=== PATIENT | female | born 1985 | race Caucasian/White ===

== ENCOUNTER 2017-01-13 18:53 | Emergency (ER) | payer MEDICAID ==
[~2017-01-13] VITALS: Ht 167.6 cm; Wt 71.6 kg
[~2017-01-13 18:53] MED LIST: AMOXICILLIN/CL875 MG PO; LORTAB 7.5-3251 TAB PO; MOTRIN800 MG PO; PENICILLIN V P500 MG PO; PHENERGAN12.5 MG/TA PO; ULTRAM50 M1 PO
[2017-01-13 19:27] VITALS: BP 106/68
== END 2017-01-13 19:30 | disposition home or self-care (01) | DRG 395 ==
LOC: ED 18:53
DX: T18.9XXA Foreign body of alimentary tract, part unspecified, initial encounter (principal); X58.XXXA Exposure to other specified factors, initial encounter; Y93.89 Activity, other specified; Y92.511 Restaurant or cafe as the place of occurrence of the external cause

== ENCOUNTER 2018-12-03 09:15 | Emergency (ER) | payer OTHER ==
[~2018-12-03] VITALS: Ht 167.6 cm; Wt 90.0 kg
[2018-12-03] MEDS ORDERED: ZITHROMAX250 MG PO (12:38)
[2018-12-03] MEDS ORDERED: PROVENTIL108 MCG/AC IN (12:38)
[2018-12-03] MEDS ORDERED: TORADOL PO (12:38)
[2018-12-03 12:41] VITALS: BP 116/74
== END 2018-12-03 12:41 | disposition home or self-care (01) ==
LOC: ED 09:15
DX: J06.9 Acute upper respiratory infection, unspecified (principal); R05 Cough; R09.81 Nasal congestion; R53.81 Other malaise; F17.210 Nicotine dependence, cigarettes, uncomplicated; R11.2 Nausea with vomiting, unspecified

== ENCOUNTER → 2018-12-25 | Outpatient (REF) | payer OTHER ==
[~2018-12-25] MED LIST changes: +PROVENTIL108 MCG/AC IN; +TORADOL PO; +ZITHROMAX250 MG PO
[2018-12-25 16:35] LABS: HEMATOCRIT 39.4 % (37.0-47.0); IMMATURE GRANULOCYTES 0.1 % (0.0-5.0); MEAN CELL VOLUME 93.8 fL CALC (80.0-100.0); NEUT# 4.13 thou/uL (2.00-7.15); RED BLOOD COUNT 4.2 mill/uL (4.20-5.60); RED CELL DISTRI WIDTH 13.2 % (11.5-15.5)
[2018-12-25 16:54] LABS: ALBUMIN 4.6 g/dL (3.2-5.0); ALKALINE PHOSPHATASE 82 u/l (38-126); ANION GAP 13 (6-22 (CALC)); BILIRUBIN, TOTAL 0.6 mg/dL (0.0-1.4); BUN 9 mg/dL (7-17); BUN/CREATININE RATIO 11 (12-20 (CALC)); CALCULATED LDLCHOLESTEROL 66 mg/dL (62-129 (CALC)); CARBON DIOXIDE 29 mmol/l (22-30); CHLORIDE 101 mmol/l (95-108); CHOLESTEROL HDL RATIO 2.1 (<4.4 (CALC)); CREATININE 0.8 mg/dL (0.5-1.0); GFR > 60 ML/MIN (>=60 (CALC)); GFR FOR AFR.AMER. > 60 ML/MIN (>=60 (CALC)); HDL CHOLESTEROL 68 mg/dL (>=40); POTASSIUM 3.9 mmol/l (3.5-5.1); SGOT/AST 49 u/l (14-36); SODIUM 139 mmol/l (137-146); TOTAL CHOLESTEROL 144 mg/dl (0-199); TOTAL TRIGLYCERIDES 51 mg/dl (30-149); VLDL CHOLESTROL 10 mg/dl (1-41 (CALC))
[2018-12-25 17:23] LABS: TSH, 3RD GENERATION 1.79 uIU/mL (0.47 - 4.68)
== END | disposition home or self-care (01) ==
LOC: LAB 14:24
PROVIDERS: ATTEND Physician Assistant
DX: N91.5 Oligomenorrhea, unspecified (principal); B19.20 Unspecified viral hepatitis C without hepatic coma; Z72.51 High risk heterosexual behavior; E66.3 Overweight; R53.83 Other fatigue

== ENCOUNTER 2023-06-29 14:30 | Emergency (ER) | payer BC ==
[2023-06-29] VITALS (13 sets, daily range): BP systolic 110–149; BP diastolic 64–92
[~2023-06-29] VITALS: Ht 167.6 cm; Wt 73.9 kg
[2023-06-29 15:47] LABS: BASO% 0.5 % (0-3); EOS% 3.4 % (0-8); HEMATOCRIT 34.4 % (37.0-47.0); IMMATURE GRANULOCYTES 0.2 % (0.0-5.0); LYMPH% 29.1 % (15-41); MEAN CELL VOLUME 88.4 fL CALC (80.0-100.0); MEAN CORPUSCULAR HGB 28.3 pG CALC (26.0-32.0); MONO% 9.9 % (2-13); NEUT# 3.47 thou/uL (2.00-7.15); NEUT% 56.9 % (42-76); RED BLOOD COUNT 3.89 mill/uL (4.20-5.60); RED CELL DISTRI WIDTH 18.2 % (11.5-15.5)
[2023-06-29 15:57] LABS: ALBUMIN 3.9 g/dL (3.2-5.0); ALKALINE PHOSPHATASE 79 u/l (38-126); ANION GAP 9 (6-22 (CALC)); BUN 11 mg/dL (7-17); BUN/CREATININE RATIO 18 (12-20 (CALC)); CARBON DIOXIDE 25 mmol/l (22-30); CHLORIDE 107 mmol/l (95-108); CREATININE 0.7 mg/dL (0.5-1.0); GFR FOR AFR.AMER. > 60 ML/MIN (>=60 (CALC)); GFR OTHER RACES > 60 ML/MIN (>=60 (CALC)); POTASSIUM 3.8 mmol/l (3.5-5.1); SGOT/AST 26 u/l (14-36); SODIUM 137 mmol/l (137-146)
[2023-06-29 15:58] LABS: BILIRUBIN, TOTAL 0.2 mg/dL (0.02-1.3)
[2023-06-29 16:48] LABS: URINE BILIRUBIN - DIPSTICK Negative (NEGATIVE); URINE BLOOD DIPSTICK Moderate (NEGATIVE); URINE GLUCOSE - DIPSTICK Negative (NEGATIVE); URINE KETONE Negative (NEGATIVE); URINE LEUK ESTERASE Negative (NEGATIVE); URINE NITRITE - DIPSTICK Negative (Negative); URINE PROTEIN - DIPSTICK Negative (NEG-TRACE); URINE UROBILINOGEN - DIPSTICK 0.2 E.U./dL (0.2)
[2023-06-29 16:54] LABS: URINE COLOR Yellow
[2023-06-29 17:01] LABS: URINE AMORPH SEDIMENT MANY hpf (NONE-FEW); URINE SQUAMOUS EPITHELIAL CELL FEW EPI/hpf (0-FEW); URINE WBC 0-2 WBC/hpf (0-5)
[2023-06-29] MEDS ORDERED: ORPHENADRINE100 MG PO (18:47)
== END 2023-06-29 19:19 | disposition home or self-care (01) | DRG 552 ==
LOC: ED 14:30
PROVIDERS: Family Medicine
DX: M54.9 Dorsalgia, unspecified (principal); M51.26 Other intervertebral disc displacement, lumbar region; F17.200 Nicotine dependence, unspecified, uncomplicated